=== PATIENT | female | born 1955 | race Caucasian/White ===

== ENCOUNTER 2017-07-04 14:22 | Emergency (ER) | payer OTHER ==
[~2017-07-04] VITALS: Ht 152.4 cm; Wt 50.9 kg
[2017-07-04] MEDS ORDERED: IBUP-1506 PO (14:38)
[2017-07-04] MEDS ORDERED: ACETAMINOPHEN/CODEINE 300-30 MG TABLET PO ONE (16:15)
[2017-07-04 17:04] VITALS: BP 122/80
== END 2017-07-04 17:48 | disposition home or self-care (01) ==
LOC: EMS 14:23
DX: M72.2 Plantar fascial fibromatosis (principal)
CPT/HCPCS: 99284

== ENCOUNTER 2017-09-16 16:03 | Emergency (ER) | payer OTHER ==
[~2017-09-16] VITALS: Ht 142.2 cm; Wt 50.0 kg
[~2017-09-16 16:03] MED LIST: IBUP-1506 PO
[2017-09-16] MEDS ORDERED: KETOROLAC TROMETHAMINE 10 MG TABLET PO ONE (17:15)
[2017-09-16 17:34] VITALS: BP 111/73
== END 2017-09-16 18:02 | disposition home or self-care (01) ==
LOC: EMS 16:04
DX: M77.51 Other enthesopathy of right foot and ankle (principal); M77.52 Other enthesopathy of left foot and ankle; Z79.899 Other long term (current) drug therapy
CPT/HCPCS: 99282